=== PATIENT | female | born 1970 | race Caucasian/White ===

== ENCOUNTER 2017-02-01 05:05 | Day surgery (SDC) | payer OTHER ==
[2017-01-29 15:58] VITALS: BMI 30.7
[2017-02-01] MEDS ORDERED: fentaNYL CITRATE 250 MCG/5 ML VIAL ONE (08:23)
[2017-02-01] MEDS ORDERED: PROPOFOL 20 ML ONE (08:23)
[2017-02-01] MEDS ORDERED: MIDAZOLAM HCL 2 MG/2 ML SINGLE DOSE VIAL ONE (08:23)
[2017-02-01] MEDS ORDERED: ROCURONIUM BROMIDE 50 MG/5 ML VIAL ONE (08:24)
[2017-02-01] MEDS ORDERED: DEXAMETHASONE SOD PHOSPHATE 4 MG/1 ML VIAL ONE (08:27)
[2017-02-01] MEDS ORDERED: ceFAZolin SODIUM 1 GM VIAL ONE (08:27)
[2017-02-01] MEDS ORDERED: SODIUM CHLORIDE 0.9% P/F 10 ML VIAL IJ ONE (08:28)
[2017-02-01] MEDS ORDERED: ceFAZolin SODIUM 1 GM VIAL IVPB ONE (09:25)
[2017-02-01] MEDS ORDERED: METOPROLOL TARTRATE 5 MG/5 ML VIAL ONE (09:40)
[2017-02-01] MEDS ORDERED: BUPIVACAINE HCL/PF 0.5% (5MG/ML) 10 ML VIAL ONE (09:43)
[2017-02-01] MEDS ORDERED: BUPIVACAINE HCL/PF 0.5% (5MG/ML) 10 ML VIAL IJ ONE (10:15)
[2017-02-01] MEDS ORDERED: NEOSTIGMINE METHYLSULFATE 0.5 MG/ML - 10 ML MDV ONE (10:15)
[2017-02-01] MEDS ORDERED: IBUPROFEN 600 MG TABLET (FP) PO PRN (10:55)
[2017-02-01] MEDS ORDERED: IBUPROFEN 800 MG/8 ML IJ IVPB PRN (10:55)
--- NOTE | 2017-02-01 10:55 | HP ---
History & Physical Update - History History: No Change - Physical Physical: No Change - Assessment Assessment: No Change - Plan Plan: No Change
[2017-02-01] MEDS ORDERED: LACTATED RINGERS SOLUTION 1,000 ML IV SCH (11:00)
--- NOTE | 2017-02-01 11:00 | OP ---
Operative Note - Note: Operative Date: 02/01/17 Pre-Operative Diagnosis: chronic pelvic pain. salpingitis Operation: Laparascopic robotic bilateral salpingectomy. laparoscopic robotic removal of essure. hysteroscopy. Suction DC Findings: bilateral salpingitis Post-Operative Diagnosis: Same as Pre-op Surgeon: Debbie [employer] Driver: Jessica Fisher Anesthesia: General Estimated Blood Loss (mls): 25 Operative Report Dictated: Yes
--- NOTE | 2017-02-01 11:13 | OP ---
DATE OF OPERATION: 02/01/2017 PREOPERATIVE DIAGNOSIS: Pelvic pain, salpingitis. OPERATION: Robotic bilateral salpingectomy and removal of Essure, hysteroscopy, and dilation and curettage. SURGEON: Debbie Espinoza MD [employer]ILY THERAPIST: Jessica Fisher DO ANESTHESIA: General. PROCEDURE: The patient was taken to the operating room and placed in dorsal lithotomy position and prepped and draped in the usual sterile fashion. A time-out was performed in accordance with hospital regulation. A Marks catheter was inserted into the bladder. Attention was then drawn to the umbilicus where an 8-mm umbilical incision was made. Veress needle was inserted into the cavity. Approximately 3-4 L of CO2 was insufflated in the cavity. Veress needle was then removed, and am 8-mm trocar was inserted. Two trocars were inserted on the left, one parallel to the umbilicus. An 8-mm incision was made and trocar was inserted under direct visualization with laparoscope and camera attached. Left upper abdomen AirSeal 5-mm trocar was inserted after incision had been made. Two 8-mm incisions parallel to the umbilicus on the right were made, and 8-mm trocars were inserted. Trocars were all inserted under direct visualization. The patient was placed in steep Trendelenburg, and the robot was then side docked to the patient's bedside. Trocars were then inserted. The Juanita grasper and Endo Caroline and bipolar were inserted under direct visualization. Attention was then turned to the console where console of the console was done. Tubes were bilaterally grasped and cut. Essure was seen and was removed with the robot. The tubes were bilaterally grasped and coagulated and cut, and bilateral salpingectomy was performed with the robot. All Essures were removed from the endometrial cavity as well as the tube and submitted to Pathology. Tubes were removed and submitted bilaterally. Hemostasis was achieved. Ovaries were noted to be normal. All instruments were then removed. CO2 was removed from the abdomen. Incisions were then closed using 4-0 Biosyn in subcuticular fashion. Hysteroscopy was then performed after speculum was placed in the vagina. Anterior lip of the cervix was grasped with a single-tooth tenaculum. Hysteroscopy revealed normal endometrial cavity. Suction dilation and curettage was then done. Specimen was submitted to Pathology. Hemostasis was achieved. Estimated blood loss was 25 mL. All instruments were then removed. The patient tolerated the procedure well and was taken to the recovery room in stable condition. Brad [id number]
[2017-02-01] MEDS ORDERED: ONDANSETRON 4 MG/2 ML VIAL IVPUSH ONE (11:30)
[2017-02-01] MEDS ORDERED: ONDANSETRON 4 MG/2 ML VIAL ONE (11:30)
[2017-02-01] MEDS ORDERED: PROMETHAZINE HCL 25 MG/1 ML VIAL IVPUSH ONE (12:49)
[2017-02-01 12:53] VITALS: TEMP 98
[2017-02-01] MEDS ORDERED: oxyCODONE HCL 5 MG TABLET PO PRN ×2 (12:55)
[2017-02-01] MEDS ORDERED: ONDANSETRON 4 MG/2 ML VIAL IVPUSH PRN (12:55)
[2017-02-01 14:35] VITALS: BP 142/84; PULSE 93
--- NOTE | 2017-02-02 19:18 | PATH ---
Surgical Pathology Report Patient Name: ARI NASH [facility]. Rec. #: [id number] /Age/Gender: 1970 (Age: 47) / F Account: [id number] Location: [facility] SURGICAL Taken: 02/01/2017 Received: 02/01/2017 Reported: 02/02/2017 Physicians: Debbie Espinoza M.D. Specimen(s) Received A: LEFT ESSURE WITH LEFT TUBE FALLOPIAN B: RIGHT ESSURE WITH RIGHT TUBE FALLAOPIAN C: ENDOMETRIAL CURETTINGS Clinical History Essure pain, salpingitis Final Diagnosis A. FALLOPIAN TUBE WITH ESSURE, LEFT, ROBOTIC ASSISTED LAPAROSCOPIC SALPINGECTOMY: FULL LUMINAL PORTION OF FALLOPIAN TUBE WITH FOCAL CONGESTION, EDEMA, FEW LYMPHOID AGGREGATES AND PARATUBAL CYSTS. DOCUMENT COORDINATOR CONSISTENT WITH ESSURE WIRE. MACROSCOPIC DIAGNOSIS. B. FALLOPIAN TUBE WITH ESSURE, RIGHT, ROBOTIC ASSISTED LAPAROSCOPIC SALPINGECTOMY: FULL LUMINAL PORTION OF FALLOPIAN TUBE WITH FOCAL DEGENERATIVE/REACTIVE CHANGES AND FIBROSIS. DOCUMENT COORDINATOR CONSISTENT WITH ESSURE WIRE. MACROSCOPIC DIAGNOSIS. C. ENDOMETRIAL CURETTINGS, DILATATION AND CURETTAGE: PROLIFERATIVE ENDOMETRIUM, LOWER UTERINE SEGMENT, AND BENIGN ENDOCERVICAL TISSUE. Electronically Signed Macarena Cowart M.D. Gross Description A. Received in formalin labeled "left fallopian tube with left Essure," is a 3.5 cm in length fimbriated fallopian tube. The outer surface is rodriguez purple and convoluted with multifocal small paratubal cysts attached. Sectioning reveals an unremarkable lumen. Also received within the same container is a kyle, coiled wire, consistent with an Essure. Head Packager sections of the fallopian tube are submitted in 2 cassettes as follows: 1-fimbria; 2-cross sections of fallopian tube. B. Received in formalin labeled "right Essure with fallopian tube," is a 4 cm in length fimbriated fallopian tube. The outer surface is pink-ventura and smooth with a focal rodriguez metallic wire (Essure) protruding from the proximal aspect of the tube. The Essure is removed. Sectioning reveals an unremarkable lumen. Head Packager sections are submitted in 2 cassettes as follows: 1-fimbria; 2-cross sections of fallopian tube. C. Received in formalin labeled "endometrial curettings," is a 1.5 x 1.3 x 0.3 cm aggregate of ventura soft tissue fragments admixed with mucus. The formalin is filtered and the specimen is entirely submitted in one cassette. 02/01/201702/01/2017
== END 2017-02-01 14:45 | disposition home or self-care (01) ==
LOC: JASU-SURG 05:05
PROVIDERS: ATTEND Obstetrics & Gynecology
PROC: 0UT74ZZ Resection of Bilateral Fallopian Tubes, Percutaneous Endoscopic Approach (ICD-10-PCS; principal; 2017-02-01 08:30)
PROC: 0UDB8ZX Extraction of Endometrium, Via Natural or Artificial Opening Endoscopic, Diagnostic (ICD-10-PCS; 2017-02-01 08:30)
DX: N70.91 Salpingitis, unspecified (principal); R10.2 Pelvic and perineal pain
CPT/HCPCS: 58558; 58661; S2900; 88304-TC; 88305-TC; 94760

== ENCOUNTER 2020-03-03 08:52 | Day surgery (SDC) | payer OTHER ==
[2020-03-03 09:20] VITALS: BMI 29.0
[2020-03-03] MEDS ORDERED: PROPOFOL 20 ML ONE (09:57)
[2020-03-03] MEDS ORDERED: MIDAZOLAM HCL 2 MG/2 ML SINGLE DOSE VIAL ONE (09:57)
[2020-03-03] MEDS ORDERED: LIDOCAINE HCL 2% (20ML MULTI-DOSE VIAL) ONE (10:14)
[2020-03-03] MEDS ORDERED: oxyCODONE HCL 5 MG TABLET PO PRN (10:17)
[2020-03-03] MEDS ORDERED: ONDANSETRON 4 MG/2 ML VIAL IVPUSH PRN (10:17)
[2020-03-03] MEDS ORDERED: LACTATED RINGERS SOLUTION 1,000 ML IV SCH (10:30)
[2020-03-03] MEDS ORDERED: KETOROLAC TROMETHAMINE 30 MG/1 ML VIAL ONE (10:46)
[2020-03-03 11:49] VITALS: PULSE 89; TEMP 97.8
[2020-03-03 11:57] VITALS: BP 116/80
== END 2020-03-03 11:59 | disposition home or self-care (01) ==
LOC: FASU 08:52
PROVIDERS: ATTEND Orthopaedic Surgery Hand Surgery
PROC: 0LN70ZZ Release Right Hand Tendon, Open Approach (ICD-10-PCS; 2020-03-03)
PROC: 0LN50ZZ Release Right Lower Arm and Wrist Tendon, Open Approach (ICD-10-PCS; principal; 2020-03-03 10:54)
DX: M65.4 Radial styloid tenosynovitis [de Quervain] (principal); M65.331 Trigger finger, right middle finger
CPT/HCPCS: 84703